=== PATIENT | female | born 1985 | race Caucasian/White ===

== ENCOUNTER 2020-10-18 16:57 | Emergency (ER) | payer SELFPAY ==
--- NOTE | 2020-10-18 17:08 | EDM.PDOC ---
ED HPI GENERAL MEDICAL PROBLEM - General Stated Complaint: BEE STING Time Seen by Provider: 10/18/20 17:08 Source of Information: Reports: Patient History Limitations: Reports: No Limitations - History of Present Illness INITIAL COMMENTS - FREE TEXT/NARRATIVE: 35-year-old female who reports at approximately 2:30 PM today she was stung wasp on her left great toe. There was immediate pain to the area and she has some redness and swelling in the area. She has been applying ice packs to the area but has taken no medications.(An 8/10 level of pain in the area and it is sharp and stinging pain and seems to radiate up her foot to her lower leg. There has been no difficulty breathing. No itching or rash. No weakness or dizziness. She had no antecedent issues or problems. She presents to the emergency department via private vehicle with her relative a laceration. There are no other associated signs or symptoms. There are no other modifying factors. 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 - Related Data Allergies Allergy/AdvReac Type Severity Reaction Status Date / Time Penicillins Allergy Unknown Cannot Verified 10/18/20 17:12 Remember Home Meds: Home Meds NK [No Known Home Meds] 10/18/20 [History] Past Medical History Neurological History: Reports: Neuropathy, Diabetic Psychiatric History: Reports: Anxiety, Bipolar, Depression, PTSD Endocrine/Metabolic History: Reports: Diabetes, Type II - Past Surgical History Musculoskeletal Surgical History: Reports: Carpal Tunnel Social & Family History - Tobacco Use Tobacco Use Status *Q: Current Every Day Tobacco User - Alcohol Use Alcohol Use History: Yes Alcohol Use Frequency: Socially - Living Situation & Occupation Occupation: Unemployed Social History Comment: Recently moved to this area one month ago. ED ROS GENERAL - Review of Systems Review Of Systems: See Below Constitutional: Denies: Fever, Chills HEENT: Denies: Eye Pain, Throat Pain, Throat Swelling Respiratory: Denies: Shortness of Breath, Wheezing Cardiovascular: Denies: Chest Pain, Lightheadedness GI/Abdominal: Denies: Abdominal Pain, Nausea, Vomiting : Denies: Dysuria, Urgency Musculoskeletal: Reports: Foot Pain. Denies: Back Pain Skin: Reports: Erythema Neurological: Denies: Dizziness, Headache Hematologic/Lymphatic: Denies: Easy Bleeding, Easy Bruising ED EXAM, SKIN/RASH Exam: See Below Exam Limited By: No Limitations General Appearance: Alert, WD/WN, Mild Distress (She does appear to be in some pain but nontoxic.) Eye Exam: Bilateral Eye: EOMI, Normal Inspection Ears: Normal External Exam, Hearing Grossly Normal Nose: Normal Inspection, Normal Mucosa, No Blood Throat/Mouth: Normal Inspection, Normal Oropharynx, Normal Voice, No Airway Com promise Head: Atraumatic, Normocephalic Neck: Normal Inspection, Supple, Non-Tender, Full Range of Motion Respiratory/Chest: No Respiratory Distress, Lungs Clear, Normal Breath Sounds, No Accessory Muscle Use Cardiovascular: Normal Peripheral Pulses, Regular Rate, Rhythm, No Murmur Peripheral Pulses: 2+: Radial (L), Radial (R), Dorsalis Pedis (L), Dorsalis Pedis (R) GI/Abdominal: Normal Bowel Sounds, Soft, Non-Tender, No Mass Back Exam: Normal Inspection, Full Range of Motion Extremities: Normal Inspection, Normal Range of Motion, Non-Tender, No Pedal Edema, Normal Capillary Refill Neurological: Alert, Oriented, CN II-XII Intact, Normal Cognition, No Motor/Sensory Deficits Skin: Warm, Dry, Intact, Erythema (And some swelling over the left great toe.) Location, Skin: Lower Extremity, Left (Left great toe) Characteristics: Erythematous Associated features: Tenderness, Swelling Lymphatic: No Adenopathy Course - Orders/Labs/Meds Meds: Medications Discontinued Medications Generic Name Dose Route Start Last Admin Trade Name Freq PRN Reason Stop Dose Admin Diphenhydramine HCl 50 mg 10/18/20 17:59 10/18/20 18:21 Diphenhydramine 50 Mg Cap PO 10/18/20 18:00 50 mg ONETIME ONE Administration Ibuprofen 800 mg 10/18/20 17:59 10/18/20 18:21 Ibuprofen 800 Mg Tab PO 10/18/20 18:00 800 mg ONETIME ONE Administration - Re-Assessments/Exams Free Text/Narrative Re-Assessment/Exam: 10/18/20 16:30: Patient is awake and alert. She does. Be in some pain but is otherwise nontoxic. There is no respiratory distress. There is no evidence of anaphylaxis or significant allergic reaction. She will be given Benadryl 50 mg orally and ibuprofen 800 mg orally. She will need to use these medications as w ell as Tylenol for the next few days as needed. She should also apply ice packs intermittently to the area as needed precautions and reasons for return to the emergency department were discussed with the patient and her relative while the patient was in the emergency department there were detailed in the patient's discharge instructions. Departure - Departure Time of Disposition: 16:57 Disposition: Home, Self-Care 01 Condition: Good Clinical Impression: Left foot pain Bee sting Qualifiers: Encounter type: initial encounter Injury intent: accidental or unintentional Qualified Code(s): T63.441A - Toxic effect of venom of bees, accidental (unintentional), initial encounter - Discharge Information Instructions: Bee, Wasp, or Hornet Sting, Adult Additional Instructions: You do not appear to have a beer allergic reaction to the bee sting. You are having a localized allergic reaction from the venom from the bee. Apply ice packs intermittently to the area of the sting for the next 1-2 days. Elevate the foot either then your heart level as often as possible over the next few days. You can take ibuprofen 600-800 mg by mouth every 6-8 hours as needed for pain. You should also take Benadryl 50 mg by mouth every 6 hours for the swelling and pain. Back to the emergency department for difficulty breathing, unrelenting vomiting, fever, redness spreading up your foot and lower leg or any other concerning signs or symptoms.
[2020-10-18] MEDS ORDERED: diphenhydrAMINE 50 MG Cap PO ONE (17:59)
[2020-10-18] MEDS ORDERED: Ibuprofen 800 MG Tab PO ONE (17:59)
== END 2020-10-18 18:25 | disposition home or self-care (01) ==
LOC: FB.ED 16:57
DX: T63.441A Toxic effect of venom of bees, accidental (unintentional), initial encounter (principal); M79.672 Pain in left foot; E11.40 Type 2 diabetes mellitus with diabetic neuropathy, unspecified; Z72.0 Tobacco use; Z88.0 Allergy status to penicillin
CPT/HCPCS: 99282; A9270

== ENCOUNTER 2021-10-31 02:18 | Emergency (ER) | payer MEDICAID ==
[2021-10-31] MEDS ORDERED: Ondansetron 4 MG/2 ML SDV IVPUSH ONE (02:48)
[2021-10-31] MEDS ORDERED: Sodium Chloride 0.9% 10 ML Syringe FLUSH PRN (02:48)
[2021-10-31] MEDS ORDERED: Sodium Chloride 0.9% 1,000 ML IV SCH (03:00)
[2021-10-31] MEDS ORDERED: Morphine 2 MG/ML SYRINGE IVPUSH ONE (03:02)
[2021-10-31 03:03] LABS: ESTIMATED GFR 85 mL/min (>60)
[2021-10-31] MEDS ORDERED: 50% Dextrose in Water 50 ML Syringe IVPUSH PRN (03:32)
[2021-10-31] MEDS ORDERED: Glucagon,Human Recombinant 1 MG Vial IM PRN (03:32)
[2021-10-31] MEDS ORDERED: Insulin Lispro 100 Unit/ML 3 ML KwikPen SUBCUT STA (03:32)
[2021-10-31] MEDS ORDERED: Iopamidol 755 Mg/ML 100 ML Bottle IV ONE (04:19)
== END 2021-10-31 05:20 | disposition home or self-care (01) ==
LOC: FB.ED 02:18
DX: K80.20 Calculus of gallbladder without cholecystitis without obstruction (principal); N83.201 Unspecified ovarian cyst, right side; E87.6 Hypokalemia; E11.40 Type 2 diabetes mellitus with diabetic neuropathy, unspecified; Z88.0 Allergy status to penicillin; Z79.899 Other long term (current) drug therapy
CPT/HCPCS: 36415; 74177; 80053; 81001; 81025; 82150; 82947; 83690; 85025; 96361; 96374; 96375; 99284; J1815; J2270; J2405; J3490; J7030; Q9967; 99283

== ENCOUNTER 2022-02-15 00:22 | Emergency (ER) | payer MEDICAID ==
[2022-02-15] MEDS ORDERED: Ketorolac 30 MG/ML SDV IVPUSH ONE (00:39)
[2022-02-15] MEDS ORDERED: LORazepam 2 MG/ML SDV IVPUSH ONE (00:39)
[2022-02-15] MEDS ORDERED: Ondansetron 4 MG/2 ML SDV IVPUSH ONE (00:39)
[2022-02-15] MEDS ORDERED: Sodium Chloride 0.9% 1,000 ML IV SCH (00:45)
[2022-02-15 00:58] LABS: ESTIMATED GFR 98 mL/min (>60)
== END 2022-02-15 02:16 | disposition home or self-care (01) ==
LOC: FB.ED 00:22
DX: F41.9 Anxiety disorder, unspecified (principal); E11.40 Type 2 diabetes mellitus with diabetic neuropathy, unspecified; Z88.0 Allergy status to penicillin
CPT/HCPCS: 36415; 80053; 85025; 96361; 96374; 96375; 99284-25; J1885; J2060; J2405; J7030